=== PATIENT | female | born 1950 | race Caucasian/White ===

== ENCOUNTER → 2016-11-11 | Outpatient (CLI) | payer MEDICAID | END | disposition home or self-care (01) | LOC: Rad HDHVI 09:23 | PROVIDERS: ATTEND Internal Medicine Cardiovascular Disease | DX: R07.89 Other chest pain (principal); R06.02 Shortness of breath | CPT/HCPCS: 93306 ==

== ENCOUNTER → 2016-11-19 | Outpatient (CLI) | payer MEDICAID ==
[~2016-11-19] MED LIST: ADENOSINE 64 MG in GIVE UN-DILUTED 0 ML IV ONE; ADENOSINE 90 MG/30 ML INJ IV ONE
== END | disposition home or self-care (01) ==
LOC: Rad HDHVI 10:06
PROVIDERS: ATTEND Internal Medicine Cardiovascular Disease
DX: R07.9 Chest pain, unspecified (principal); E78.00 Pure hypercholesterolemia, unspecified; I25.2 Old myocardial infarction
CPT/HCPCS: 78452; 93005; 96374; 96375; A9500; J0153

== ENCOUNTER → 2016-12-24 | Outpatient (CLI) | payer MEDICAID ==
[2016-12-24 11:30] VITALS: BP 110/58
[2016-12-24 12:10] VITALS: BP 119/70
[2016-12-24 15:49] LABS: Basophils # (auto) 0 uL; Basophils % (auto) 0.6 % (0.0-2.0); Eosinophils # (auto) 0.2 uL; Eosinophils % (auto) 2.1 % (0.0-7.0); Hematocrit 43.2 % (36.0-46.0); Hemoglobin 14.4 g/dL (12.2-16.2); Lymphocytes # (auto) 1.6 uL; Lymphocytes % (auto) 21.3 % (10.0-50.0); Mean Corpuscular Hemoglobin 29.6 pg (28.0-32.0); Mean Corpuscular Hgb Conc. 33.2 g/dL (32.0-36.0); Mean Corpuscular Volume 89.1 fL (80.0-100.0); Mean Platelet Volume 9.9 fL (7.4-10.4); Monocytes # (auto) 0.4 uL; Monocytes % (auto) 5.8 % (0.0-12.0); Neutrophils # (auto) 5.3 uL; Neutrophils % (auto) 70.2 % (37.0-80.0); Platelet Count (auto) 256 10^3/uL (140-450); Red Cell Distribution Width 13.2 % (11.6-16.0); White Blood Cell 7.5 10^3/uL (4.4-10.8)
[2016-12-24 16:04] LABS: BUN/Creatinine Ratio 12.3; Calcium 8.8 mg/dL (8.5-10.1)
== END | disposition home or self-care (01) ==
LOC: Rad HDHVI 11:09
PROVIDERS: ATTEND Internal Medicine Cardiovascular Disease
DX: I10 Essential (primary) hypertension (principal); D64.9 Anemia, unspecified; R79.1 Abnormal coagulation profile; Z01.812 Encounter for preprocedural laboratory examination
CPT/HCPCS: 36415; 71020; 80048; 85025; 85730; 93005; G0463

== ENCOUNTER 2016-12-28 06:59 | Inpatient (IN) | payer MEDICAID ==
[~2016-12-28] VITALS: Ht 147.3 cm; Wt 78.5 kg
[2016-12-28] MEDS ORDERED: LIDOCAINE 2%HCL (LOCAL ANESTH.) INJ 20ML MDV ONE (07:30)
[2016-12-28] MEDS ORDERED: IOHEXOL 350 MG/ML 100ML IJ ONE (07:30)
[2016-12-28] MEDS ORDERED: fentaNYL CITRATE 100 MCG/2 ML VL ONE (07:55)
[2016-12-28] MEDS ORDERED: ANGIOMAX 250 MG VIAL IV ONE (07:56)
[2016-12-28] MEDS ORDERED: SODIUM CHL 0.9% 50 ML ONE (07:56)
[2016-12-28] MEDS ORDERED: MIDAZOLAM HCL 1MG/1ML-2 ML VIAL ONE (07:56)
[2016-12-28] MEDS ORDERED: SODIUM CHLORIDE 0.9% 1,000 ML IV SCH (09:21)
[2016-12-28] MEDS ORDERED: HYDROcodone-ACET 5/325MG TAB PO PRN (09:30)
[2016-12-28] MEDS ORDERED: ONDANSETRON HCL 4 MG/2 ML VIAL IV PRN (09:30)
[2016-12-28] MEDS ORDERED: MORPHINE SULF INJ 2 MG/ML SYRINGE 1ML IV PRN (09:30)
[2016-12-28] MEDS ORDERED: NITROGLYCERIN 0.4 MG SL TAB SL PRN (09:30)
[2016-12-28] MEDS ORDERED: METO50TA7 PO (09:36)
[2016-12-28] MEDS ORDERED: AML5T PO (09:36)
[2016-12-28] MEDS ORDERED: CLOP75TA28 PO (09:36)
[2016-12-28] MEDS ORDERED: ATO40T PO (09:36)
[2016-12-28] MEDS ORDERED: ALLO100T PO (09:36)
[2016-12-28] MEDS: METOPROLOL SUCCINATE XL 50 MG TAB PO SCH (10:00)
[2016-12-28] MEDS: CLOPIDOGREL BISULFATE 75 MG TAB PO SCH (11:37)
[2016-12-28] MEDS: ALLOPURINOL 100 MG TAB PO SCH (11:37)
[2016-12-28] MEDS: amLODIPine BESYLATE 5 MG TAB PO SCH (11:38)
[2016-12-28] MEDS: SODIUM CHLOR 0.9% PF (SALINE LOCK) 10ML VIAL IV SCH ×2 (13:07→21:27)
[2016-12-28 13:18] VITALS: BP 133/64
[2016-12-28 16:43] VITALS: BP 120/65
[2016-12-28 19:30] VITALS: BP 126/86
[2016-12-28 21:37] VITALS: BP 126/86
[2016-12-28] MEDS ORDERED: ATORVASTATIN 20 MG TAB PO SCH (22:00)
[2016-12-28] MEDS ORDERED: PATIENTS OWN MEDICATION (Atorvastatin Calcium (Lipitor) 40 MG) PO SCH (22:00)
[2016-12-29] MEDS: SODIUM CHLOR 0.9% PF (SALINE LOCK) 10ML VIAL IV SCH ×2 (05:12→14:22)
[2016-12-29 05:29] VITALS: BP 128/72
[2016-12-29 08:00] VITALS: BP 103/58
[2016-12-29 09:00] VITALS: BP 103/58
[2016-12-29] MEDS: METOPROLOL SUCCINATE XL 50 MG TAB PO SCH (10:00)
[2016-12-29] MEDS: CLOPIDOGREL BISULFATE 75 MG TAB PO SCH (10:10)
[2016-12-29] MEDS: ALLOPURINOL 100 MG TAB PO SCH (10:10)
[2016-12-29] MEDS: amLODIPine BESYLATE 5 MG TAB PO SCH (10:11)
[2016-12-29 13:00] VITALS: BP 109/70
== END 2016-12-29 16:16 | disposition home or self-care (01) | DRG 167 ==
LOC: CATH 06:59 → TELE-EAST 07:00
PROVIDERS: ADMIT Internal Medicine Cardiovascular Disease; ATTEND Internal Medicine Cardiovascular Disease
PROC: B2111ZZ Fluoroscopy of Multiple Coronary Arteries using Low Osmolar Contrast (ICD-10-PCS; principal; 2016-12-29)
PROC: 027105Z Dilation of Coronary Artery, Two Arteries with Two Drug-eluting Intraluminal Devices, Open Approach (ICD-10-PCS; 2016-12-29)
PROC: B2111ZZ Fluoroscopy of Multiple Coronary Arteries using Low Osmolar Contrast (ICD-10-PCS; 2016-12-29)
PROC: 4A023N7 Measurement of Cardiac Sampling and Pressure, Left Heart, Percutaneous Approach (ICD-10-PCS; 2016-12-29)
DX: T82.855A Stenosis of coronary artery stent, initial encounter (principal); I25.2 Old myocardial infarction; I10 Essential (primary) hypertension; E78.5 Hyperlipidemia, unspecified; I25.10 Atherosclerotic heart disease of native coronary artery without angina pectoris; Y83.1 Surgical operation with implant of artificial internal device as the cause of abnormal reaction of the patient, or of later complication, without mention of misadventure at the time of the procedure
CPT/HCPCS: 99152; C1874; J2250